=== PATIENT | female | born 1955 | race Caucasian/White ===

== ENCOUNTER 2020-02-27 20:36 | Emergency (ER) | payer SELFPAY ==
[~2020-02-27] VITALS: Ht 170.2 cm; Wt 89.4 kg
[2020-02-27] MEDS ORDERED: HYDROcodone-ACET 7.5/325MG TAB PO ONE (21:00)
[2020-02-27] MEDS ORDERED: HYDROcodone-ACET 5/325MG TAB PO ONE (22:45)
[2020-02-27] MEDS ORDERED: IBUPROFEN 400 MG TAB PO ONE (22:45)
[2020-02-27 22:57] VITALS: BP 118/74
== END 2020-02-27 23:04 | disposition home or self-care (01) ==
LOC: EDBD 20:36 → ER 20:44
DX: S42.401A Unspecified fracture of lower end of right humerus, initial encounter for closed fracture (principal); S42.491A Other displaced fracture of lower end of right humerus, initial encounter for closed fracture; W19.XXXA Unspecified fall, initial encounter; Y93.89 Activity, other specified; Y92.89 Other specified places as the place of occurrence of the external cause; Y99.8 Other external cause status
CPT/HCPCS: 73080; 73562; 93005

== ENCOUNTER 2020-04-14 17:30 | Emergency (ER) | payer MEDICARE ==
[~2020-04-14] VITALS: Ht 170.2 cm; Wt 93.0 kg
[2020-04-14 17:39] VITALS: BP 182/86
== END 2020-04-14 20:09 | disposition left against medical advice (07) ==
LOC: ER 17:30
DX: I10 Essential (primary) hypertension (principal); Z53.21 Procedure and treatment not carried out due to patient leaving prior to being seen by health care provider
CPT/HCPCS: 93005

== ENCOUNTER 2021-02-05 11:20 | Emergency (ER) | payer MEDICARE ==
[~2021-02-05] VITALS: Ht 170.2 cm; Wt 93.9 kg
[2021-02-05 12:54] VITALS: BP 172/89
== END 2021-02-05 14:07 | disposition home or self-care (01) ==
LOC: ER 11:20
DX: S82.142A Displaced bicondylar fracture of left tibia, initial encounter for closed fracture (principal); Z88.0 Allergy status to penicillin; W18.39XA Other fall on same level, initial encounter; Y93.89 Activity, other specified; Y92.89 Other specified places as the place of occurrence of the external cause; Y99.8 Other external cause status
CPT/HCPCS: 29505; 73700